=== PATIENT | female | born 1955 | race Caucasian/White ===

== ENCOUNTER 2023-09-01 11:37 | Emergency (ER) | payer MEDICARE, BC ==
[~2023-09-01] VITALS: Ht 172.7 cm; Wt 99.3 kg
[2023-09-01] MEDS ORDERED: GLUCOSAMINE1000 MG PO (13:40)
[2023-09-01] MEDS ORDERED: LUTEIN10 MG PO (13:41)
[2023-09-01] MEDS ORDERED: CALCIUM + D3 E1 EACH PO (13:42)
[2023-09-01] MEDS ORDERED: DICLOFENAC SODI75 MG PO (13:42)
[2023-09-01] MEDS ORDERED: SIMVASTATIN10 MG PO (13:42)
[2023-09-01] MEDS ORDERED: HYDROCODON-ACE1 EA10 PO (13:43)
[2023-09-01 14:18] VITALS: BP 172/93
== END 2023-09-01 14:18 | disposition home or self-care (01) ==
LOC: ED 11:37
DX: H53.8 Other visual disturbances (principal); Z79.899 Other long term (current) drug therapy
CPT/HCPCS: 99283